=== PATIENT | male | born 1975 | race Caucasian/White ===

== ENCOUNTER 2020-09-23 12:38 | Emergency (ER) | payer OTHER ==
[~2020-09-23] VITALS: Ht 180.3 cm; Wt 88.5 kg
[2020-09-23 12:41] VITALS: BP 107/63
[2020-09-23] MEDS ORDERED: FLONASE 0.05%50 MCG NARES (12:46)
[2020-09-23] MEDS ORDERED: NORCO 5-325 TA1 EAC2 PO (16:38)
== END 2020-09-23 17:16 | disposition home or self-care (01) ==
LOC: ER 12:38
DX: S82.492A Other fracture of shaft of left fibula, initial encounter for closed fracture (principal); S92.342A Displaced fracture of fourth metatarsal bone, left foot, initial encounter for closed fracture; Z79.899 Other long term (current) drug therapy; W18.39XA Other fall on same level, initial encounter; Y93.89 Activity, other specified; Y92.89 Other specified places as the place of occurrence of the external cause; Y99.8 Other external cause status